=== PATIENT | female | born 1955 | race Caucasian/White ===

== ENCOUNTER 2018-01-15 06:23 | Day surgery (SDC) | payer BC ==
[~2018-01-15 06:23] MED LIST: KETOROLAC TROMETHAMINE 0.45% 4 DROP/0.4 ML DROPERETTE OD PRN
[2018-01-15] MEDS ORDERED: FENTANYL CITRATE INJ/PF 100 MCG/2 ML AMPUL ONE (06:48)
[2018-01-15] MEDS ORDERED: MIDAZOLAM 2 MG/2 ML INJ ONE (06:48)
[2018-01-15] MEDS: TETRACAINE HCL 0.5% OPH SOLN 2 ML OD PRN ×3 (06:50→07:34)
[2018-01-15] MEDS: TROPICAMIDE 1% OPH SOLN 3 ML OD PRN ×3 (06:50→07:10)
[2018-01-15] MEDS: BESIFLOXACIN HCL 0.6% OPH SUSP 5 ML BOTTLE OD PRN ×4 (06:50→07:58)
[2018-01-15] MEDS: CYCLOPENTOLATE 0.2%/PHENYLEPHRINE 1% OPH SOLN 2 ML OD PRN ×3 (06:50→07:10)
[2018-01-15] MEDS ORDERED: CHONDR SU A NA/HYALUR INTRAOC KIT (SURGICARE) ONE (07:10)
[2018-01-15] MEDS ORDERED: TOBRAMYCIN SULFATE/DEXAMETH OPH OINTMENT 3.5 GM ONE (07:10)
[2018-01-15] MEDS ORDERED: LIDOCAINE 1% INJ-PF (10 MG/ML) 30 ML SDV ONE (07:10)
[2018-01-15] MEDS ORDERED: EPINEPHRINE INJ/PF 1 MG/1 ML AMPULE ONE (07:10)
--- NOTE | 2018-02-17 12:04 | [facility] OPERATIVE REPORT E ---
[facility] Operative Report NAME: ASHER APODACA AGE: 62Y DATE OF SURGERY: 01/15/2018 ROOM: PREOPERATIVE DIAGNOSIS: CATARACT, RIGHT EYE. POSTOPERATIVE DIAGNOSIS: CATARACT, RIGHT EYE. OPERATION: Cataract extraction with intraocular lens implant of the right eye. SURGEON: IRENE SCHAEFER M.D. ANESTHESIA: Topical. PROCEDURE: After obtaining appropriate consent, the patient's right eye was prepped and draped in sterile fashion as well as the surgeon in a sterile manner and cataract surgery was started. First a paracentesis blade was used to make a small side-port incision. Viscoelastic was used to inflate the anterior chamber. Next a 2.4 mm incision was made with the paracentesis blade. A continuous capsulorrhexis incision was made using a cystotome and Utrata forceps. Following this hydrodissection was carried out to make the lens fully loose and mobile and it was rotated 90 degrees. Following this, a tblhbr-yro-yvhpshb technique was used to phacoemulsify the lens with a CDE of 15.10. The remaining cortex was removed with irrigation/aspiration. Provisc was instilled into the capsular bag to inflate the bag. A SN60WF, 24.0 diopter lens was placed. The remaining viscoelastic material was removed with irrigation/aspiration. Following this, a 10-0 nylon suture was used to close the incision and it was found to be watertight. Vigamox was instilled in the eye and a protective shield was placed over the eye. The patient returned to the postoperative recovery in stable condition. DICTATING PHYSICIAN: IRENE SCHAEFER M.D. [id number] PHY#: [id number] ID: [id number] JOB#: [id number] ACCT:[id number] cc:IRENE SCHAEFER M.D. >
== END 2018-01-15 08:34 | disposition home or self-care (01) ==
LOC: SC 06:23
PROVIDERS: ATTEND Internal Medicine
DX: H25.811 Combined forms of age-related cataract, right eye (principal); I10 Essential (primary) hypertension; K21.9 Gastro-esophageal reflux disease without esophagitis; K44.9 Diaphragmatic hernia without obstruction or gangrene; Z79.899 Other long term (current) drug therapy; Z88.2 Allergy status to sulfonamides; Z91.041 Radiographic dye allergy status
CPT/HCPCS: 66984; V2632; J2250; J3490 ×2; J0171; J3010; 142